=== PATIENT | male | born 1990 | race Caucasian/White ===

== ENCOUNTER 2017-02-02 22:20 | Emergency (ER) | payer OTHER ==
[~2017-02-02] VITALS: Ht 193 cm; Wt 99.8 kg
[2017-02-02] MEDS ORDERED: AMOXICILLIN TRIHYDRATE 250 MG CAPSULE PO ONE (23:45)
[2017-02-02] MEDS ORDERED: HYDROCODONE/APAP 10-325 MG TABLET PO ONE (23:45)
[2017-02-02] MEDS ORDERED: AMOXICILLIN TRIHYDRATE 250 MG CAPSULE ONE (23:56)
--- NOTE | 2017-02-02 23:56 | NUR ---
Patient discharged to home in stable conditon. Written and verbal after care instructions given. Patient verbalizes understanding of instructions.
[2017-02-02] MEDS ORDERED: HYDROCODONE/APAP 10-325 MG TABLET ONE (23:57)
== END 2017-02-02 23:57 | disposition home or self-care (01) ==
LOC: EDSEX 22:31 → ER 22:31
DX: K08.89 Other specified disorders of teeth and supporting structures (principal); F17.200 Nicotine dependence, unspecified, uncomplicated
CPT/HCPCS: A4663